=== PATIENT | female | born 1995 | race African-American/Black ===

== ENCOUNTER 2017-02-22 20:07 | Emergency (ER) | payer MEDICAID | END 2017-02-22 21:00 | disposition left against medical advice (07) | LOC: ER 20:55 | DX: Z53.21 Procedure and treatment not carried out due to patient leaving prior to being seen by health care provider (principal) ==

== ENCOUNTER 2023-08-14 13:01 | Emergency (ER) | payer MEDICAID ==
[~2023-08-14] VITALS: Ht 157.5 cm; Wt 61.2 kg
[2023-08-14 13:11] VITALS: BP 106/59; PULSE 75; RESP 16; TEMP 98.3; O2SAT 100
[2023-08-14] MEDS ORDERED: P20 MT (14:51)
== END 2023-08-14 15:10 | disposition home or self-care (01) ==
LOC: ER 13:01
DX: R21 Rash and other nonspecific skin eruption (principal); Z88.0 Allergy status to penicillin; Z88.8 Allergy status to other drugs, medicaments and biological substances
CPT/HCPCS: 99283

== ENCOUNTER 2024-07-16 19:54 | Emergency (ER) | payer MEDICAID ==
[~2024-07-16] VITALS: Ht 157.5 cm; Wt 55.0 kg
[~2024-07-16 19:54] MED LIST: P20 MT
[2024-07-16 19:59] VITALS: O2SAT 100
[2024-07-16] MEDS: ACETAMINOPHEN 325MG TABLET PO ONE (21:24)
[2024-07-16 22:30] VITALS: BP 99/66; PULSE 69; RESP 18; TEMP 36.8; O2SAT 100
[2024-07-16 23:19] LABS: INFLUENZA TYPE A Presumptive Negative (Pres. Neg.)
[2024-07-16 23:20] LABS: INFLUENZA TYPE B Presumptive Negative (Pres. Neg.)
== END 2024-07-16 22:31 | disposition home or self-care (01) ==
LOC: ER 19:54
DX: J02.9 Acute pharyngitis, unspecified (principal); Z88.1 Allergy status to other antibiotic agents; Z88.0 Allergy status to penicillin
CPT/HCPCS: 87070; 87430; 87804; 99283